=== PATIENT | male | born 1970 | race Caucasian/White ===

== ENCOUNTER 2025-01-06 08:53 | Outpatient (REF) | payer OTHER, SELFPAY ==
--- OUTSIDE RECORDS SUMMARY | 2025-01-06 09:20 | XMS_ITS | Clinical Summary ---
[facility] Organization [address] Building Address [address] [place] [phone] Phone Care Team Providers Care Assembly And Packing Supervisor Name Role Phone Juan Watsonlissette MARTINEZ Primary Care Provider [phone] Allergies No known active allergies Medications LORazepam (ATIVAN) 1 mg tablet Take 1 tablet (1 mg total) by mouth 1 (one) time each day if needed for anxiety. Max Daily Amount: 1 mg 28 tablet 12/02/2024 Active atorvastatin (LIPITOR) 20 mg tablet TAKE 1 TABLET BY MOUTH EVERY DAY 90 tablet 1 12/03/2024 Active Active Problems Problem Noted Date Diagnosed Date Premature atrial contractions 11/02/2022 Symptomatic PVCs 10/31/2022 Overview (02/27/2024): Suspect Other chest pain 01/06/2021 Palpitations 09/24/2020 Snoring 03/17/2020 Overview (02/27/2024): 02/2020 Home Sleep Study did not reveal sleep apnea or nocturnal hypoxia. Anxiety 01/08/2020 Hypercholesterolemia 01/08/2020 Encounters Date Type Department Care Team Description 12/15/2024 Telephone Internal Medicine - [facility] [address], [place] [phone] Inna Patiño [place] Results 12/10/2024 3:06 PM EDT - 12/10/2024 11:59 PM EDT Hospital Encounter [facility] CT Scan [address] [place] [id number] Hypercholesterolemia Discharge Disposition: Home or Self Care 12/02/2024 4:00 PM EDT [facility] [address] [place] [address] Maggie Watson NP Adult general medical examination (Primary Dx); Anxiety; Hypercholesterolemia; Screening for deficiency anemia; Screening for metabolic disorder; Encounter for lipid screening for cardiovascular disease; Screening for prostate cancer; Long-term use of high-risk medication; Decreased hearing of both ears; Lung nodule from Last 3 Months Immunizations Name Administration Dates Next Due Influenza trivalent, 0.5mL, preservative free (Fluarix; FluLaval; Fluzone) ages 6mo and older (Afluria) 3 years and older 04/02/2015 Zoster recombinant (Shingrix) 19yo and older 10/2023,03/17/2024 Medical History Medical History Date Comments Anxiety 01/08/2020 DX:Anxiety HLD (hyperlipidemia) 01/08/2020 DX:HLD (hyp erlipidemia) Reflux esophagitis DX:Reflux eso phagitis Calculus of kidney DX:Calculus o f kidney Palpitations DX:Palpitations Basal cell carcinoma DX:Basal ce ll carcinoma Family History Medical History Relation Name Comments No Known Problems Brother 1 No Known Problems Brother 2 Dementia Father Nephrolithiasis Father Other: Hydrocephalis of brain Father Other: afib Father Prostate cancer Father Heart attack Maternal Grandfather smoker Other: hardeniing of artheries Maternal Grandmother smoker Breast cancer Mother Other cancer Mother Dementia Paternal Grandfather Other: TIA Paternal Grandfather Other: Falls Paternal Grandmother Relation Name Status Comments Brother 1 Alive Brother 2 Alive Father Maternal Grandfather Maternal Grandmother Mother Paternal Grandfather Paternal Grandmother Social History Tobacco Use Types Packs/Day Years Used Date Smoking Tobacco: Never Smokeless Tobacco: Never Alcohol Use Standard Drinks/Week Comments Not Currently 0 (1 standard drink = 0.6 oz pur e alcohol) Sex and Gender Information Value Date Recorded Sex Assigned at Male 12/04/2024 1:52 PM EDT Legal Sex Male 2:38 PM EST Gender Identity Male 12/04/2024 1:52 PM EDT Sexual Orientation Straight 12/04/2024 1: 52 PM EDT Obstetrics History Last Filed Vital Signs Vital Sign Reading Time Taken Comments Blood Pressure 128/76 12/02/2024 4:07 PM EDT Pulse 61 12/02/2024 3:46 PM EDT Temperature - - Respiratory Rate - - Oxygen Saturation - - Inhaled Oxygen Concentration - - Weight 96.6 kg (213 lb) 12/02/2024 3:46 PM EDT Height 180.3 cm (5' 11 ) 12/02/2024 3:46 PM EDT Body Mass Index 29.71 12/02/2024 3:46 PM EDT Plan of Treatment Upcoming Encounters Date Type Department Care Team (Late st Contact Info) Description 06/03/2025 8:45 AM EST Office Visit Internal Medicine - [facility] [address] [place] [phone] Maggie Watson NP [address] [place] [address] Health Maintenance Due Date Last Done Comments Social Influencers of Health Screening 05/17/2022 Depression Screening 06/18/2024 Influenza Vaccine (#1) 2025 , 04/02/2015 Colorectal Cancer Screening: Colonoscopy 2025 2020 DTaP,Tdap,and Td Vaccines (1 - Tdap) 12/02/2025 Postponed from 1989 (Patient Refused) Cholesterol Screening (Lipid Panel) 12/02/2029 12/02/2024, 02/01/2024, 02/01/2024 Hepatitis C Screening Completed 06/18/2019 COVID-19 Vaccine Discontinued 05/06/2021, 08/29/2020, 08/01/2020 Zoster Vaccines Completed 05/22/2024, 03/17/2024 HIB Vaccines Aged Out No longer eligi ble based on patient's age to complete this topic HIV Screening Discontinued HPV Vaccines Aged Out No longer eligi ble based on patient's age to complete this topic Hepatitis A Vaccines Aged Out No long er eligible based on patient's age to complete this topic Hepatitis B Vaccines Discontinued IPV Vaccines Aged Out No longer eligi ble based on patient's age to complete this topic MMR Vaccines Aged Out No longer eligi ble based on patient's age to complete this topic Meningococcal ACWY Vaccine Aged Out N o longer eligible based on patient's age to complete this topic Meningococcal B Vaccine Aged Out No l onger eligible based on patient's age to complete this topic Pneumococcal Vaccine: 50+ Years Discontinued RSV Immunization Patients Under 20 months Aged Out No longer eligible b ased on patient's age to complete this topic Varicella Vaccines Aged Out No longer eligible based on patient's age to complete this topic Procedures Procedure Name Priority Date/Time Associated Diagnosis Comments CT HEART CALCIUM SCORING WO CONTRAST Routine 12/10/2024 3:50 PM EDT Hypercholesterolemia DRUG ABUSE SCREEN 8A PANEL, URINE Routine 12/02/2024 4:31 PM EDT Long-term use of high-risk medication COMPREHENSIVE METABOLIC PANEL Routine 12/02/2024 4:25 PM EDT Screening for metabolic disorder LIPID PANEL WITH REFLEX TO DIRECT LDL Routine 12/02/2024 4:25 PM EDT Screening for metabolic disorder Encounter for lipid screening for cardiovascular disease PROSTATE SPECIFIC ANTIGEN SCREEN Routine 12/02/2024 4:25 PM EDT Screening for prostate cancer COMPLETE BLOOD COUNT Routine 12/02/2024 4:25 PM EDT Screening for deficiency anemia HM HEPATITIS C SCREENING Routine 06/18/2019 from Last 3 Months or Most Recently Relevant to Health Maintenance Results * CT Heart Calcium Scoring wo Contrast (12/10/2024 3:50 PM EDT) Anatomical Region Laterality Modality Body Computed Tomogra phy 12/15/2024 12:1 1 PM EDT Impressions 12/15/2024 12:15 PM EDT 1. Coronary calcium score 0. CAC-DRS category 0. See below for risk stratification and treatment recommendations. 2. Right middle lobe 5 mm nodule along the minor fissure, probably an intrapulmonary lymph node. For newly detected indeterminate solid pulmonary nodules < 6 mm in size, Fleischner Society guidelines recommend no routine followup in low risk patients. For patients with risk factors (older age, heavy smoking history) consider optional follow-up chest CT in 12 months. REFERENCES: CAC-DRS: Coronary Artery Calcium Data and Reporting System. An Expert Consensus Document of the Society of Cardiovascular Computed Tomography (SCCT) Category CAC Score Risk Treatment Recommendation CAC-DRS 0 0 Very low Statin generally not recommended (excluding familial hypercholesterolemia) CAC-DRS 1 1?99 Mildly increased Moderate intensity statin CAC-DRS 2 100?299 Moderately increased Moderate to high intensity statin + ASA 81mg CAC-DRS 3 > 300 Moderately to severely increased High intensity statin + ASA 81mg J Cardiovasc Comput Tomogr. 2018; 12:185-191. JAMA 10 year cardiac risk calculator: https://internal.jama-nhlbi.org/about/procedures/tools/hhlp-rdewx-bhbf-calculato r Report reviewed and signed by : Dr. Gerald Figueroa on 12/15/2024 12:15 PM. Workstation Name - [id number] -------- FINAL REPORT -------- Dictated By: Gerald Figueroa Dictated Date: 12/15/2024 12:11 ET Assigned Physician: Gerald Figueroa Reviewed and Electronically Signed By: Gerald Figueroa Signed Date: 12/15/2024 12:15 ET Workstation ID: [id number] Transcribed By: Self Edit Transcribed Date: 12/15/2024 12:11 ET Narrative 12/15/2024 12:15 PM EDT EXAM: CT CORONARY CALCIUM SCORE (AGATSTON) DATE OF SERVICE: 12/10/2024 3:10 PM. HISTORY: hyperlipidemia COMPARISON: None. TECHNIQUE: Standard prospective cardiac-gated axial imaging of the heart was performed to evaluate for calcified coronary artery atherosclerosis utilizing the Agatston scoring system. An age/sex/race-adjusted score percentile was derived by comparison of the score with Multi-Ethnic Study of Atherosclerosis (JAMA) reference population. All CT imaging was performed utilizing a combination of automated exposure control, adjustment of the mA and/or kV according to patient size and use of iterative reconstruction techniques to achieve dose as low as reasonably achievable. FINDINGS: Coronary calcium score: Left main: 0 Left anterior descendin Circumflex: 0 Right coronary: 0 TOTAL: 0 Additional cardiovascular findings: Ascending thoracic aorta: Normal caliber. Pulmonary artery: Normal caliber. Descending thoracic aorta: Normal caliber. Cardiac valves: Grossly unremarkable. Pericardium: Unremarkable. Heart: Heart size within normal limits. Non-cardiovascular findings: Lungs: Right middle lobe 5 mm nodular density along the minor fissure (series 5, image 103). Lungs otherwise clear. Central airways patent. Mediastinum: No mediastinal lymphadenopathy. Visualized upper abdomen: Unremarkable. Procedure Note Gerald Figueroa MD - 12/15/2024 EXAM: CT CORONARY CALCIUM SCORE (AGATSTON) DATE OF SERVICE: 12/10/2024 3:10 PM. HISTORY: hyperlipidemia COMPARISON: None. TECHNIQUE: Standard prospective cardiac-gated axial imaging of the heartwas performed to evaluate for calcified coronary artery atherosclerosisutilizing the Agatston scoring system. An age/sex/race-adjusted scorepercentile was derived by comparison of the score with Multi-Ethnic Studyof Atherosclerosis (JAMA) reference population. All CT imaging was performed utilizing a combination of automated exposurecontrol, adjustment of the mA and/or kV according to patient size and useof iterative reconstruction techniques to achieve dose as low asreasonably achievable. FINDINGS: Coronary calcium score: Left main: 0 Left anterior descendin Circumflex: 0 Right coronary: 0 TOTAL: 0 Additional cardiovascular findings: Ascending thoracic aorta: Normal caliber. Pulmonary artery: Normal caliber. Descending thoracic aorta: Normal caliber. Cardiac valves: Grossly unremarkable. Pericardium: Unremarkable. Heart: Heart size within normal limits. Non-cardiovascular findings: Lungs: Right middle lobe 5 mm nodular density along the minor fissure(series 5, image 103). Lungs otherwise clear. Central airways patent. Mediastinum: No mediastinal lymphadenopathy. Visualized upper abdomen: Unremarkable. IMPRESSION: 1. Coronary calcium score 0. CAC-DRS category 0. See below for riskstratification and treatment recommendations. 2. Right middle lobe 5 mm nodule along the minor fissure, probably anintrapulmonary lymph node. For newly detected indeterminate solidpulmonary nodules < 6 mm in size, Fleischner Society guidelines recommendno routine followup in low risk patients. For patients with risk factors(older age, heavy smoking history) consider optional follow-up chest CT in12 months. REFERENCES: CAC-DRS: Coronary Artery Calcium Data and Reporting System. An ExpertConsensus Document of the Society of Cardiovascular Computed Tomography(SCCT) Category CAC Score Risk Treatment Recommendation CAC-DRS 0 0 Very low Statin generally not recommended(excluding familial hypercholesterolemia) CAC-DRS 1 1?99 Mildly increased Moderate intensitystatin CAC-DRS 2 100?299 Moderately increased Moderate to highintensity statin + ASA 81mg CAC-DRS 3 > 300 Moderately to severely increased High intensitystatin + ASA 81mg J Cardiovasc Comput Tomogr. 2018; 12:185-191. JAMA 10 year cardiac risk calculator: https://internal.jama-nhlbi.org/about/procedures/tools/lxkz-tjjdf-ucjs-calculato r Report reviewed and signed by : Dr. Gerald Figueroa on 12/15/2024 12:15 PM.Workstation Name - [id number] -------- FINAL REPORT -------- Dictated By: Gerald Figueroa Dictated Date: 12/15/2024 12:11 ET Assigned Physician: Gerald Figueroa Reviewed and Electronically Signed By: Gerald Figueroa Signed Date: 12/15/2024 12:15 ET Workstation ID: [id number] Transcribed By: Self Edit Transcribed Date: 12/15/2024 12:11 ET Maggie Watson NP IM CT PROCEDURES Final Result * Drug abuse screen 8a panel, urine (12/02/2024 4:31 PM EDT) Amphetamine Screen, Ur Negative Negative LAB CHEMISTRY METHOD 12/02/2024 7:07 PM EDT [facility] Comment:Certain OTC medicati ons containing ephedrine, phenylephrine, pseudoephedrine and phenylpropanolamine can cause false positive results. Barbiturate Screen, Ur Negative Negative LAB CHEMISTRY METHOD 12/02/2024 7:07 PM EDT [facility] Benzodiazepine Screen, Ur Negative Negative LAB CHEMISTRY METHOD 12/02/2024 7:07 PM EDT [facility] Cocaine Screen, Ur Negative Negative LAB CHEMISTRY METHOD 12/02/2024 7:07 PM EDT [facility] Opiate Screen, Ur Negative Negative LAB CHEMISTRY METHOD 12/02/2024 7:07 PM EDT [facility] Cannabinoid (THC) Screen, Ur Negative Negative LAB CHEMISTRY METHOD 12/02/2024 7:07 PM EDT [facility] Comment:Specimens from patie nts taking pantoprazole sodium (Protonix) have been shown to produce false positive results. Oxycodone Screen, Ur Negative Negative LAB CHEMISTRY METHOD 12/02/2024 7:07 PM EDT [facility] Fentanyl, Ur Negative Negative LAB CHEMISTRY METHOD 12/02/2024 7:07 PM EDT [facility] Urine Urine specimen obtained by clean catch procedure / Unknown Non-blood Collection / Unknown 12/02/2024 4:31 PM EDT 12/02/2024 4:31 PM EDT Narrative [facility] - 12/02/2024 7:07 PM EDT Assay cutoffs: Amphetamines 1000 ng/mL Barbiturates 200 ng/mL Benzodiazepines 200 ng/mL Cocaine 300 ng/mL Fentanyl 1 ng/mL Opiates 300 ng/mL Oxycodone 100 ng/mL THC 50 ng/mL Semi-quantitative assay for screening purposes only. Unconfirmed screening result should not be used for non-medical purposes. *ALTERNATE METHOD CONFIRMATION DONE UPON REQUEST ONLY* Maggie Watson NP LAB URINE ORDERABLES Final Resu lt [facility] [address] [place] [address], * Prostate specific antigen screen (12/02/2024 4:25 PM EDT) PSA 2.64 0.00 - 4.00 ng/mL LAB CHEMISTRY METHOD 12/02/2024 7:25 PM EDT [facility] Blood Venous blood specimen / Unknown Venipuncture / Unknown 12/02/2024 4:25 PM EDT 12/02/2024 4:25 PM EDT Narrative [facility] - 12/02/2024 7:25 PM EDT The Siemens Advia Centaur Chemiluminescent Immunoassay is used. Results obtained with different assay methods or kits cannot be used interchangeably. Results cannot be interpreted as absolute evidence of the presence or absence of malignant disease. us Maggie Watson NP LAB BLOOD ORDERABLES Final Resu lt [facility] [address] [place] [address], [place] [phone] * (ABNORMAL) Lipid panel with reflex to direct LDL (12/02/2024 4:25 PM EDT) Cholesterol 174 0 - 200 mg/dL LAB CHEMISTRY METHOD 12/02/2024 7:08 PM EDT [facility] Triglycerides 361(H) 0 - 150 mg/dL LAB CHEMISTRY METHOD 12/02/2024 7:08 PM EDT [facility] HDL 59 >=40 mg/dL LAB CHEMISTRY METHOD 12/02/2024 7:08 PM EDT [facility] LDL Calculated 43 0 - 100 mg/dL LAB CHEMISTRY METHOD 12/02/2024 7:08 PM EDT [facility] VLDL Cholesterol Derrell 72.2 mg/dL LAB CHEMISTRY METHOD 12/02/2024 7:08 PM EDT [facility] Non HDL Chol. (LDL+VLDL) 115 <145 mg/dL LAB CHEMISTRY METHOD 12/02/2024 7:08 PM EDT [facility] Chol/HDL Ratio 2.9 0.0 - 4.4 LAB CHEMISTRY METHOD 12/02/2024 7:08 PM EDT [facility] Blood Venous blood specimen / Unknown Venipuncture / Unknown 12/02/2024 4:25 PM EDT 12/02/2024 4:25 PM EDT Maggie Walter MOLDER HELPER LAB BLOOD ORDERABLES Final Resu lt [facility] [address] [place] [address], * Complete blood count (12/02/2024 4:25 PM EDT) [employer] Signature WBC 10.0 4.8 - 10.8 K/mcL LAB HEMETOLOGY METHOD 12/02/2024 6:17 PM EDT [facility] RBC 4.70 4.50 - 5.50 M/mcL LAB HEMETOLOGY METHOD 12/02/2024 6:17 PM EDT [facility] Hemoglobin 14.9 13.5 - 17.5 g/dL LAB HEMETOLOGY METHOD 12/02/2024 6:17 PM EDT [facility] Hematocrit 44.4 42.0 - 54.0 % LAB HEMETOLOGY METHOD 12/02/2024 6:17 PM EDT [facility] MCV 93.9 79.0 - 98.0 FL LAB HEMETOLOGY METHOD 12/02/2024 6:17 PM EDT [facility] MCH 31.5 27.0 - 32.0 pcg LAB HEMETOLOGY METHOD 12/02/2024 6:17 PM EDT [facility] MCHC 33.6 32.0 - 37.0 g/dL LAB HEMETOLOGY METHOD 12/02/2024 6:17 PM EDT [facility] RDW 12.2 11.0 - 15.0 % LAB HEMETOLOGY METHOD 12/02/2024 6:17 PM EDT [facility] Platelets 319 130 - 400 K/mcL LAB HEMETOLOGY METHOD 12/02/2024 6:17 PM EDT [facility] MPV 9.4 7.0 - 11.0 FL LAB HEMETOLOGY METHOD 12/02/2024 6:17 PM EDT [facility] NRBC 0.0 <1.0 % LAB HEMETOLOGY METHOD 12/02/2024 6:17 PM EDT [facility] NRBC Absolute 0.00 <0.10 K/mcL LAB HEMETOLOGY METHOD 12/02/2024 6:17 PM EDT [facility] Blood Venous blood specimen / Unknown Venipuncture / Unknown 12/02/2024 4:25 PM EDT 12/02/2024 4:25 PM EDT us Maggie Watson MOLDER HELPER LAB BLOOD ORDERABLES Final Resu lt [facility] [address] [place] [address], * (ABNORMAL) Comprehensive metabolic panel (12/02/2024 4:25 PM EDT) Sodium 141 133 - 145 mmol/L LAB CHEMISTRY METHOD 12/02/2024 7:[address] [facility] Potassium 4.2 3.5 - 5.5 mmol/L LAB CHEMISTRY METHOD 12/02/2024 7:[address] [facility] Chloride 107 96 - 110 mmol/L LAB CHEMISTRY METHOD 12/02/2024 7:[address] [facility] CO2 27 21 - 32 mmol/L LAB CHEMISTRY METHOD 12/02/2024 7:[address] [facility] Anion Gap 7 3 - 11 LAB CHEMISTRY METHOD 12/02/2024 7:[address] [facility] Glucose 102(H) 70 - 100 mg/dL LAB CHEMISTRY METHOD 12/02/2024 7:[address] [facility] BUN 26(H) 5 - 25 mg/dL LAB CHEMISTRY METHOD 12/02/2024 7:[address] [facility] Creatinine 1.28 0.70 - 1.30 mg/dL LAB CHEMISTRY METHOD 12/02/2024 7:[address] [facility] eGFR 67 >=60 mL/min/1. 73m2 LAB CHEMISTRY METHOD 12/02/2024 7:[address] [facility] Comment:Calculation based on the Chronic Kidney Disease Epidemiology Collaboration (CKD-EPI) equation refit without adjustment for race. BUN/Creatinine Ratio 20.3 LAB CHEMISTRY METHOD 12/02/2024 7:[address] [facility] Calcium 9.2 8.5 - 10.5 mg/dL LAB CHEMISTRY METHOD 12/02/2024 7:[address] [facility] AST (SGOT) 31 10 - 42 unit/L LAB CHEMISTRY METHOD 12/02/2024 7:[address] [facility] ALT (SGPT) 53 10 - 60 unit/L LAB CHEMISTRY METHOD 12/02/2024 7:[address] [facility] Alkaline Phosphatase 95 42 - 121 unit/L LAB CHEMISTRY METHOD 12/02/2024 7:[address] [facility] Total Protein 7.0 6.0 - 8.0 g/dL LAB CHEMISTRY METHOD 12/02/2024 7:[address] [facility] Albumin 4.0 3.2 - 5.0 g/dL LAB CHEMISTRY METHOD 12/02/2024 7:[address] [facility] Total Bilirubin 0.4 0.0 - 1.4 mg/dL LAB CHEMISTRY METHOD 12/02/2024 7:[address] [facility] Blood Venous blood specimen / Unknown Venipuncture / Unknown 12/02/2024 4:25 PM EDT 12/02/2024 4:25 PM EDT us Maggie Watson NP LAB BLOOD ORDERABLES Final Resu lt [facility] [address], [place] [address] [phone] * Hepatitis C Screening (06/18/2019) Hepatitis C Screening abstracted us Historical Provider MD HEALTH MAINTENANCE Final Result from Last 3 Months or Most Recently Relevant to Health Maintenance Insurance [facility] Care Teams Assembly And Packing Supervisor Relationship Specialty Start Date End Date Maggie Watson NP [address] [facility] [place] [id number] PCP - General 07/28/22
== END 2025-01-06 08:54 | disposition home or self-care (01) ==
LOC: HO.SH 08:53
PROVIDERS: Visit Provider Nurse Practitioner Primary Care
DX: Z01.118 Encounter for examination of ears and hearing with other abnormal findings (principal); H93.293 Other abnormal auditory perceptions, bilateral
CPT/HCPCS: 92557